=== PATIENT | female | born 1980 | race Caucasian/White ===

== ENCOUNTER 2024-02-09 06:06 | Emergency (ER) | payer OTHER, SELFPAY ==
[2024-02-09 06:13] VITALS: BP 140/87; PULSE 79; RESP 16; TEMP 36.6; O2SAT 98; BMI 33.3
--- NOTE | 2024-02-09 06:23 | CRLHL7_ITS ---
For Patients: As a result of the Century Cures Act, medical imaging exams and procedure reports are released immediately into your electronic medical record. You may view this report before your referring provider. If you have questions, please contact your health care provider. INDICATION: Left-sided abdominal pain TECHNIQUE: CT abdomen and pelvis acquired with 98 cc Omnipaque 350 IV contrast. COMPARISON: None. FINDINGS: Lower chest: Lingular atelectasis. Liver: Unremarkable. Normal in size and attenuation. No suspicious masses. Gallbladder and bile ducts: Unremarkable. No stones or inflammation. No biliary dilatation. Pancreas: Unremarkable. Spleen: Unremarkable. Adrenal glands: Unremarkable. Kidneys: There is a 4 x 4 x 4 millimeter stone in the proximal left ureter just past the UPJ (, ). There is moderate left hydronephrosis with significant perinephric stranding and delayed left nephrogram. Subcentimeter hypodense lesions in the right kidney likely represent cysts. GI tract: No obstruction. No bowel wall thickening. Normal appendix. Vasculature: Abdominal aorta is normal in caliber. Mesenteric arteries are patent. Lymph nodes: No lymphadenopathy. Peritoneum/Abdominal Wall: Small fat containing umbilical hernia. Pelvis: Unremarkable. Bones: Minimal degenerative disease of the spine. IMPRESSION: There is a 4 x 4 x 4 millimeter stone in the proximal left ureter just past the UPJ with resulting moderate left hydronephrosis. There is significant perinephric stranding and delayed left nephrogram likely related to congestion. Please note that all CT scans at this facility use dose modulation, iterative reconstruction, and/or weight-based dosing when appropriate to reduce radiation dose to as low as reasonably achievable. Dictated by Mireya Santoyo MD @ 02/09/2024 7:13:18 AM (Electronically Signed)
[2024-02-09] MEDS: LACTATED RINGERS 1000 ML 1,000 ML IV (06:27)
[2024-02-09] MEDS: ONDANSETRON 2 MG/ML inj 4 MG IVP (06:27)
[2024-02-09 06:42] LABS: Albumin* 4.5 g/dL (3.3-5.0); Chloride* 102 mmol/L (96-114)
[2024-02-09 06:43] LABS: Basophils Percent Auto 0.2 % (0.0-3.0); Eosinophils Percent Auto 0.2 % (0.0-7.0); Hematocrit 41.2 % (33.0-51.0); Hemoglobin* 14.4 gm/dL (12.0-16.0); Immature Granulocytes Pct Auto 0.1 %; Lymphocytes Percent Auto 6.2 % (20-44); Mean Corpuscular HGB Conc 35 gm/dL (32-36); Mean Corpuscular Hemoglobin 31 pg (26-34); Mean Corpuscular Volume 88 fL (80-100); Monocytes Percent Auto 2.8 % (0.0-11.0); Neutrophils Percent Auto 90.5 % (42.0-72.0); Platelet Count* 284 K/uL (140-440); Potassium* 3.3 mmol/L (3.6-5.1); RDW Coefficient of Variation % 11.7 % (11.5-15.5); Sodium* 135 mmol/L (135-149); White Blood Count* 12.19 K/uL (4.50-11.00)
[2024-02-09 06:45] LABS: Alkaline Phosphatase* 89 U/L (40-150); Anion Gap 10 mEq/L (7-15); Aspartate Amino Transferase* 21 U/L (12-35); Bilirubin Total* 0.4 mg/dL (0.1-1.5); Blood Urea Nitrogen* 18 mg/dL (5-24); Carbon Dioxide* 23 mmol/L (20-32); Creatinine* 0.9 mg/dL (0.5-1.5); Est. Creatinine Clearance* 72.53; Estimated Glomerular Filt Rate 81 ml/min
[2024-02-09 06:46] LABS: Alanine Aminotransferase* 16 U/L (4-35); Calcium* 9.1 mg/dL (8.4-10.6); Glucose* 137 mg/dL (60-115); Lipase* 92 U/L (23-300); Slide Review Reflex No
--- NOTE | 2024-02-09 06:54 | ED_ITS ---
HPI - Abdominal Pain General Chief Complaint: Abdominal Pain Stated Complaint: Abdominal pain, vomiting Time Seen by Provider: 02/09/24 06:23 History of Present Illness HPI narrative: Patient is a 43-year-old woman who presents with 24 hours of nausea vomiting fatigue and has not developed abdominal pain left lower quadrant which she states is likely due to the recurrent retching. She has had no diarrhea. She has had no fevers no chills. She states she is not . She has been in her usual state of health and has had no sick contacts or travel. Related Data Home Medications ?Medication ?Instructions ?Recorded ?Confirmed atorvastatin 10 mg tablet 10 mg PO DAILY 02/09/24 02/09/24 buspirone 10 mg tablet 10 mg PO BID 02/09/24 02/09/24 dextroamphetamine-amphetamine ER 1 cap PO QAM 02/09/24 02/09/24 20 mg 24hr capsule,extend release fluoxetine 20 mg capsule 20 mg PO QAM 02/09/24 02/09/24 metformin 500 mg tablet,extended 1,000 mg PO BID 02/09/24 02/09/24 release 24 hr Previous Rx's ?Medication ?Instructions ?Recorded hydrocodone 5 mg-acetaminophen 325 1 tab PO Q4H PRN pain #10 tabs 02/09/24 mg tablet ondansetron 4 mg disintegrating 4 mg PO TID PRN nausea and 02/09/24 tablet vomiting 4 days #10 tabs tamsulosin 0.4 mg capsule (Flomax) 0.4 mg PO DAILY #10 caps 02/09/24 Allergies Allergy/AdvReac Type Severity Reaction Status Date / Time Sulfa (Sulfonamide Allergy Verified 02/09/24 06:15 Antibiotics) Review of Systems Status of ROS Reports: 10 or more systems reviewed and unremarkable except as noted in History and below [facility] Social History Do you use any of these nicotine containing products: None How often do you have a drink containing alcohol: never AUDIT-C Alcohol total score: 0 Non-prescribed substance use: denies use Exam Narrative: Exam Narrative: EXAM GENERAL: Patient appears comfortable and well. EYES: No scleral icterus. LYMPH: No supraclavicular or cervical lymphadenopathy. SKIN: Visible skin seen during exam normal or with benign process only. EXT: No dependent lower extremity pedal edema. HEART: Regular rate and rhythm with no murmurs, rubs, or gallops. LUNGS: Clear to auscultation bilaterally with no crackles or wheezes. ABD: Soft, non tender, non distended. PSYCH: Good eye contact, speech is not pressured. Const: Vital Signs, click to edit/add: Vital Signs - 24 hr 02/09/24 06:13 Temperature 98 F Pulse Rate [Pulse Oximeter] 79 Respiratory Rate 16 Blood Pressure [Ri t Upper Arm] 140/87 H Pulse Oximetry 98 Oxygen Delivery Me thod Room Air Course Course ED Course: Joan seen examined 1 L of lactated Ringer's given. 4 mg of IV Zofran given. CT abdomen pelvis CBC CMP lipase pending. Vital Signs Vital signs: Initial Vital Signs Temperature 98 F 02/09/24 06:13 Temperature Source Temporal Artery Scan 02/09/24 06:13 Pulse Rate 79 02/09/24 06:13 Respiratory Rate 16 02/09/24 06:13 Blood Pressure 140/87 H 02/09/24 06:13 Blood Pressure Mean 104 02/09/24 06:13 Blood Pressure Position Supine 02/09/24 06:13 Pulse Oximetry 98 02/09/24 06:13 Oxygen Delivery Method Room Air 02/09/24 06:13 Vital Signs Temperature 98 F 02/09/24 06:13 Pulse Rate 79 02/09/24 06:13 Respiratory Rate 16 02/09/24 06:13 Blood Pressure 140/87 H 02/09/24 06:13 Pulse Oximetry 98 02/09/24 06:13 Oxygen Delivery Method Room Air 02/09/24 06:13 Temperature 98 F 02/09/24 06:13 Pulse Rate 79 02/09/24 06:13 Respiratory Rate 16 02/09/24 06:13 Blood Pressure 140/87 H 02/09/24 06:13 Pulse Oximetry 98 02/09/24 06:13 Oxygen Delivery Method Room Air 02/09/24 06:13 Medications Administered Medications: Discontinued Medications Generic Name Dose Route Start Last Admin Trade Name Freq PRN Reason Stop Dose Admin Lactated Ringer's 1,000 mls @ 1,000 mls/hr 02/09/24 06:23 02/09/24 07:48 Lactated Ringers 1000 Ml IV 02/09/24 07:22 Infused .Q1H ONE Infusion Ketorolac Tromethamine 15 mg 02/09/24 07:30 02/09/24 07:35 Ketorolac 15 Mg/Ml Inj IVP 02/09/24 07:31 15 mg ONCE ONE Administration Lorazepam 0.5 mg 02/09/24 07:31 02/09/24 10:24 Lorazepam 2 Mg/Ml Inj IVP 02/09/24 07:32 Not Given ONCE ONE Ondansetron HCl 4 mg 02/09/24 06:24 02/09/24 06:27 Ondansetron 2 Mg/Ml Inj IVP 02/09/24 06:25 4 mg ONCE ONE Administration MDM - Abdominal Pain MDM Narrative Medical decision making narrative: Patient is a 43-year-old woman who presents with left lower abdominal pain nausea and vomiting. Lab workup to this point is unrevealing. UA will be reviewed prior to discharge. CT of the abdomen pelvis shows a 4 x 4 cm kidney stone in the left ureter. Patient was treated with Zofran Ativan and lactated R arturo's. She is feeling much better. At this time will discharge her home with Tylenol and Motrin for pain Zofran for nausea and Flomax helped the stone pass. I did send her home with CT to potentially collect the kidney stone. She will follow-up with her primary physician next week. She would drink plenty of fluids get plenty of rest. Lab Data Labs: Lab Results 02/09/24 02/09/24 Range/Units 06:23 07:38 WBC 12.19 H (4.50-11.00) K/uL RBC 4.70 (4.00-5.20) m/uL Hgb 14.4 (12.0-16.0) gm/dL Hct 41.2 (33.0-51.0) % MCV 88 (80-100) fL MCH 31 (26-34) pg MCHC 35 (32-36) gm/dL RDW Coeff of Taz 11.7 (11.5-15.5) % Plt Count 284 (140-440) K/uL Neut % (Auto) 90.5 H (42.0-72.0) % Lymph % (Auto) 6.2 L (20-44) % [place] % (Auto) 2.8 (0.0-11.0) % Eos % (Auto) 0.2 (0.0-7.0) % Baso % (Auto) 0.2 (0.0-3.0) % Neut # (Auto) 11.00 H (1.7-7.0) K/uL Lymph # (Auto) 0.80 L (0.90-2.90) K/uL [place] # (Auto) 0.30 (0.00-0.90) K/UL Eos # (Auto) 0.00 (0.00-0.50) K/uL Baso # (Auto) 0.00 (0.00-0.30) K/uL Abs Immat Gran (auto) 0.00 (0.00-0.30) K/uL Imm/Tot Granulo (auto) 0.1 % Sodium 135 (135-149) mmol/L Potassium 3.3 L (3.6-5.1) mmol/L Chloride 102 (96-114) mmol/L Carbon Dioxide 23 (20-32) mmol/L Anion Gap 10 (7-15) mEq/L BUN 18 (5-24) mg/dL Creatinine 0.9 (0.5-1.5) mg/dL Estimated Creat Clear 72.53 Estimated GFR 81 ml/min Glucose 137 H (60-115) mg/dL Calcium 9.1 (8.4-10.6) mg/dL Total Bilirubin 0.4 (0.1-1.5) mg/dL AST 21 (12-35) U/L ALT 16 (4-35) U/L Alkaline Phosphatase 89 (40-150) U/L Total Protein 7.0 (6.0-8.3) g/dL Albumin 4.5 (3.3-5.0) g/dL Lipase 92 (23-300) U/L Urine Color Yellow (Yellow) Urine Appearance Clear (Clear) Urine pH 6.5 (5.0-8.5) Ur Specific [place] 1.020 (1.000-1.030) Urine Protein Negative (Negative) Urine Glucose (UA) Negative (Negative) Urine Ketones Negative (Negative) Urine Blood 2+ A (Negative) Urine Nitrite Negative (Negative) Urine Bilirubin Negative (Negative) Urine Urobilinogen 0.2 (0.2-1.0) Ur Leukocyte Esterase Negative (Negative) Urine RBC 25-50 A (0-2) Urine WBC 2-5 (0-5) Ur Squamous Epith Cells Few (None-Few) Calcium Oxalate Crystal Few A (None) Urine Bacteria Few A (None) Urine Mucus Moderate A (None) Discharge Plan Discharge Clinical Impression: Calculus of kidney Instructions: Kidney Stones (ED) Additional Instructions: Zofran as needed for nausea Flomax to help stone passed. Drink plenty of fluids Tylenol Motrin Rest Follow-up with your doctor next week. Activity Level: No Restrictions Discharge Diet: Regular Prescriptions: New tamsulosin [Flomax] 0.4 mg capsule 0.4 mg PO DAILY Qty: 10 0RF ondansetron 4 mg tablet,disintegrating 4 mg PO TID PRN (Reason: nausea and vomiting) 4 Days Qty: 10 0RF hydrocodone-acetaminophen 5-325 mg tablet 1 tab PO Q4H PRN (Reason: pain) Qty: 10 0RF No Action atorvastatin 10 mg tablet 10 mg PO DAILY dextroamphetamine-amphetamine 20 mg capsule,extended release 24hr 1 cap PO QAM buspirone 10 mg tablet 10 mg PO BID fluoxetine 20 mg capsule 20 mg PO QAM metformin 500 mg tablet extended release 24 hr 1,000 mg PO BID Follow Up/Referrals: Paulina Ramey MD [Staff Physician] -
[2024-02-09] MEDS: KETOROLAC 15 MG/ML inj IVP (07:35)
[2024-02-09 07:54] LABS: Appearance Urine Clear (Clear); Bilirubin Urine Negative (Negative); Blood Urine 2+ (Negative); Color Urine Yellow (Yellow); Glucose Urine Negative (Negative); Ketones Urine Negative (Negative); Leukocyte Esterase Urine Negative (Negative); Nitrite Urine Negative (Negative); Protein Urine Negative (Negative); Urobilinogen Urine 0.2 (0.2-1.0); pH Urine 6.5 (5.0-8.5)
[2024-02-09 08:06] LABS: Bacteria Urine Few; RBC Urine 25-50 (0-2); Squamous Epithelial Cell Urine Few (None-Few)
[2024-02-09 08:07] LABS: Calcium Oxalate Crystals Urine Few
[2024-02-09 08:08] LABS: Mucus Urine Moderate
== END 2024-02-09 08:23 | disposition home or self-care (01) ==
LOC: ED 07:33
PROVIDERS: Emergency Provider Internal Medicine; PCP Physician Assistant
DX: N20.0 Calculus of kidney (principal)
CPT/HCPCS: 36415; 74177; 80053; 81001; 81003; 83690; 85025; 87086; 96374; 96375; 99283; 99284; J1885; J2405; J7120; Q9967

== ENCOUNTER 2024-04-03 17:06 | Emergency (ER) | payer OTHER, SELFPAY ==
[2024-04-03 17:37] VITALS: BP 115/78; PULSE 112; RESP 16; TEMP 37.3; O2SAT 98; BMI 33.3
--- NOTE | 2024-04-03 18:42 | ED.ALLEREA ---
HPI - Allergic Reaction General Date Seen: 04/03/24 Chief complaint: Allergic Reaction Stated complaint: Allergic reaction--hives, face swelling Time Seen by Provider: 04/03/24 18:41 History of Present Illness HPI narrative: 43-year-old female who is generally healthy. She does have a history of high cholesterol, elevated BMI, ADHD, anxiety. She has a history of allergy to sulfa but no other known allergens. She presents to the ER today with hives. She developed hives yesterday initially on her torso and abdomen and since then they have spread to multiple liver hurts her body including her arms, hands, upper extremities, back, ears, neck, lower extremities, knees, shins. Also some swelling on her upper and lower lip today. No other symptoms. The hives are very itchy. She is not having any change in her voice. No swelling in her throat. No trouble breathing. No fever. No abdominal pain. No nausea. No dizziness or lightheadedness. She has been trying to treat hives with [id number] medications including Benadryl, Mohini, and anti-itch cream but is not successful. She was not able to sleep last night because of the severity of the itching. The she is not having any blisters or desquamation of her skin. No new medications. No new foods. No clear new allergen exposure. Related Data Home Medications ?Medication ?Instructions ?Recorded ?Confirmed atorvastatin 10 mg tablet 10 mg PO DAILY 02/09/24 04/03/24 buspirone 10 mg tablet 10 mg PO BID 02/09/24 04/03/24 dextroamphetamine-amphetamine ER 1 cap PO QAM 02/09/24 04/03/24 20 mg 24hr capsule,extend release fluoxetine 20 mg capsule 20 mg PO QAM 02/09/24 04/03/24 metformin 500 mg tablet,extended 1,000 mg PO BID 02/09/24 04/03/24 release 24 hr Previous Rx's ?Medication ?Instructions ?Recorded prednisone 20 mg tablet 40 mg (2 x 20 mg) PO DAILY 3 days 04/03/24 #6 tabs Allergies Allergy/AdvReac Type Severity Reaction Status Date / Time Sulfa (Sulfonamide Allergy Verified 04/03/24 17:43 Antibiotics) [facility] Social History Smoking Status: Former smoker Do you use any of these nicotine containing products: None How often do you have a drink containing alcohol: monthly or less AUDIT-C Alcohol total score: 1 Non-prescribed substance use: denies use Exam Narrative: Exam Narrative: Constitutional: Appears well-developed and well-nourished. Alert. Conversant. Non toxic. HENT: Head: Atraumatic. Nose: Nose normal. Mouth/Throat: Oral mucosa is clear and moist. no trismus. Pharynx normal. Tonsils symmetric. No tonsillar enlargement, erythema, or exudate. Tongue is normal. No trismus. No submandibular swelling. Phonation normal. Eyes: Conjunctivae normal. EOM normal. Pupils equal, round, and reactive to light. No scleral icterus. Neck: Normal range of motion. Neck supple. No tracheal deviation present. Cardiovascular: Normal rate, regular rhythm. No gallop. No friction rub. No murmur heard. Symmetric radial artery pulses Pulmonary/Chest: Effort normal. No stridor. No respiratory distress. No wheezes. No rales. No rhonchi . No tenderness. Abdominal: Soft. Bowel sounds normal. No distension. No mass. No tenderness. No rebound. No guarding. Musculoskeletal: RUE: Normal range of motion. No tenderness. No deformity LUE: Normal range of motion. No tenderness. No deformity RLE: Normal range of motion. No edema. No tenderness. No deformity LLE: Normal range of motion. No edema. No tenderness. No deformity Lymph: No cervical adenopathy. Neurological: Alert and oriented to person, place, and time. Normal strength. CN II-VII intact. No sensory deficit. GCS eye subscore is 4. GCS verbal subscore is 5. GCS motor subscore is 6. Normal coordination Skin: Skin is warm and dry.No pallor. Normal capillary refill. She has fairly widespread erythematous, slightly raised, irregular, pruritic lesions consistent with hives. These are present on her abdomen, chest, back, upper arms, lower arms, hands including the backs and palms, thighs, knees, shins and calves, neck, behind her ears, and also has subtle swelling of her right half of her upper lip and a little bit on her lower lip on both sides. Psychiatric: Normal mood. Normal affect. Const: Vital Signs, click to edit/add: Vital Signs - 24 hr 04/03/24 17:37 Temperature 99.1 F Pulse Rate [Pulse Oximeter] 112 H Respiratory Rate 16 Blood Pressure [Ri ght Upper Arm] 115/78 Pulse Oximetry 98 Oxygen Delivery Me thod Room Air Course Course ED Course: Recheck after meds and epi-lip swelling is definitely improved but not completely back to normal. Hives are slightly improved but not completely resolved. Otherwise stable. Vital Signs Vital signs: Initial Vital Signs Temperature 99.1 F 04/03/24 17:37 Temperature Source Temporal Artery Scan 04/03/24 17:37 Pulse Rate 112 H 04/03/24 17:37 Respiratory Rate 16 04/03/24 17:37 Blood Pressure 115/78 04/03/24 17:37 Blood Pressure Mean 90 04/03/24 17:37 Pulse Oximetry 98 04/03/24 17:37 Oxygen Delivery Method Room Air 04/03/24 17:37 Vital Signs Temperature 99.1 F 04/03/24 17:37 Pulse Rate 112 H 04/03/24 17:37 Respiratory Rate 16 04/03/24 17:37 Blood Pressure 115/78 04/03/24 17:37 Pulse Oximetry 98 04/03/24 17:37 Oxygen Delivery Method Room Air 04/03/24 17:37 Temperature 99.1 F 04/03/24 17:37 Pulse Rate 112 H 04/03/24 17:37 Respiratory Rate 16 04/03/24 17:37 Blood Pressure 115/78 04/03/24 17:37 Pulse Oximetry 98 04/03/24 17:37 Oxygen Delivery Method Room Air 04/03/24 17:37 Medications Administered Medications: Discontinued Medications Generic Name Dose Route Start Last Admin Trade Name Freq PRN Reason Stop Dose Admin Diphenhydramine HCl 25 mg 04/03/24 18:56 04/03/24 19:04 Diphenhydramine 25 Mg Capsule PO 04/03/24 18:57 25 mg ONCE ONE Administration Epinephrine HCl 0.3 mg 04/03/24 18:56 04/03/24 19:05 Epinephrine 0.3 Mg Pen IM 04/03/24 18:57 0.3 mg ONCE ONE Administration Famotidine 20 mg 04/03/24 18:56 04/03/24 19:04 Famotidine 20 Mg Tablet PO 04/03/24 18:57 20 mg ONCE ONE Administration Prednisone 40 mg 04/03/24 18:56 04/03/24 19:04 Prednisone 20 Mg Tablet PO 04/03/24 18:57 40 mg ONCE ONE Administration MDM - Allergic Reaction MDM Narrative Medical decision making narrative: This patient presents for evaluation of fairly widespread urticaria and hives that are quite itchy for the patient.. Signs and symptoms are consistent with allergic reaction. She does have subtle swelling of her lips, but no intraoral swelling. No airway involvement, bronchospasm, GI symptoms, hypotension, or other sign of anaphylaxis. Although there was no evidence for acute anaphylaxis given the widespread and significantly pruritic nature of the hives she was treated with antihistamines, steroids, and a dose of epi here in the ER in effort to try to give her more the rapid symptomatic relief. She did have some improvement after these meds. Lip swelling is definitely improved with her hives are actually fairly persistent. At this point with now 36 hours of symptoms and no signs of any progressing allergic reaction I think she is safe for outpatient management. Will send home with prescriptions for steroids. She already has supply of [id number] antihistamines s. Potential for rebound reaction was discussed. Return of anaphylactic symptoms were discussed with patient and they were instructed to inject epi-pen and call 911 should these symptoms occur. Given the time frame, lack of serious systemic symptoms, lack of respiratory difficulty and no oral or pharyngeal swelling, would not admit at this time for anaphylaxis. There is no signs of anaphylactic shock. Discharge Plan Discharge Clinical Impression: Allergic reaction, Urticaria Patient Disposition: Home, Self-Care Condition: Stable Instructions: General Allergic Reaction (ED) Additional Instructions: As we discussed, please return to the ER right away if you have any concerns especially worsening swelling in her mouth or throat, trouble breathing, lightheadedness or dizziness or other symptoms of low blood pressure, or if you have any other problems. To treat the allergic reaction continues antihistamines. Use Benadryl 25-50 mg every 6 hours as needed overnight. Use Mohini or another nondrowsy antihistamine during the day. You can add extra Benadryl during the day if the leg rest not sufficient to control the itching. Take the prednisone tomorrow morning. Do prednisone once daily for the next couple of days this will help calm down your immune system and help the hives resolve Prescriptions: New prednisone 20 mg tablet 40 mg PO DAILY 3 Days Qty: 6 0RF No Action atorvastatin 10 mg tablet 10 mg PO DAILY dextroamphetamine-amphetamine 20 mg capsule,extended release 24hr 1 cap PO QAM buspirone 10 mg tablet 10 mg PO BID fluoxetine 20 mg capsule 20 mg PO QAM metformin 500 mg tablet extended release 24 hr 1,000 mg PO BID Follow Up/Referrals: Aline Piña PA-C [Primary Care Provider] - Stand Alone [facility] Info Instructions
[2024-04-03] MEDS: diphenhydrAMINE 25 MG CAPSULE PO (19:04)
[2024-04-03] MEDS: FAMOTIDINE 20 MG TABLET PO (19:04)
[2024-04-03] MEDS: predniSONE 20 MG TABLET 40 MG PO (19:04)
[2024-04-03] MEDS: EPINEPHrine 0.3 MG PEN IM (19:05)
[2024-04-03 20:27] VITALS: BP 121/74; PULSE 84; RESP 16; TEMP 37.3; O2SAT 98
== END 2024-04-03 20:23 | disposition home or self-care (01) ==
PROVIDERS: Emergency Provider Emergency Medicine; PCP Physician Assistant
DX: L50.9 Urticaria, unspecified (principal); T78.40XA Allergy, unspecified, initial encounter
CPT/HCPCS: 94761; 96372; 99283; A9270; J0171; J7512